=== PATIENT | male | born 1955 | race Hispanic/Latino ===

== ENCOUNTER 2020-07-23 19:21 | Inpatient (IN) | payer OTHER ==
[~2020-07-23] VITALS: Ht 170.2 cm; Wt 128.4 kg
[~2020-07-23 19:21] MED LIST: ALLOPURINOL300 MG PO; AMLODIPINE BESY10 MG PO; COLACE100 MG PO; DOCUSATE SODIU100 MG PO; DOK100 MG PO; FEOSOL325 MG PO; FUROSEMIDE10 MG/1 M1 IV; GLIMEPIRIDE2 MG PO; KLOR-CON 1010 MEQ PO; LISINOPRIL10 MG PO; OMEPRAZOLE20 MG PO; PRAVASTATIN SOD40 MG PO; SENNA LAXATIVE8.6 MG PO; SENNA-S TABLET1 EA PO; TRAMADOL-ACETAMI1 EA PO; TYLENOL WITH C1 EACH PO; ULTRACET TABLE1 EACH PO; ULTRAM 50MG50 MG PO; ULTRAM50 MG PO; ZOLOFT50 MG PO
[2020-07-23 20:10] LABS: BASOPHILS % 0.2 % (0.0-1.0); HEMATOCRIT 51.1 % (38.2-49.6); HEMOGLOBIN 16.1 g/dL (14.0-18.0); LYMPHOCYTES # (AUTO) 0.5 (1.0-3.2); LYMPHOCYTES % 2.3 % (18.0-39.1); MEAN CORPUSCULAR HEMOGLOBIN 27.5 pg (28-32); MEAN CORPUSCULAR HGB CONC 31.5 g/dL (31-35); MEAN CORPUSCULAR VOLUME 87.4 fL (81-99); MONOCYTES # (AUTO) 1.1 (0.2-0.8); MONOCYTES % 4.8 % (4.4-11.3); NEUTROPHILS # (AUTO) 20.2 (2.1-6.9); NEUTROPHILS % 92.1 % (38.7-80.0); PLATELET COUNT 139 x10e3/uL (140-360); RED BLOOD COUNT 5.85 x10e6/uL (4.3-5.7); RED CELL DISTRIBUTION WIDTH 16.8 % (11.7-14.4)
[2020-07-23] MEDS ORDERED: VANCOMYCIN 1GM/NS 250 ML 250 ML IV STA (20:26)
[2020-07-23] MEDS ORDERED: CEFEPIME 1 GM in SODIUM CHLORIDE 0.9% 50ML 50 ML IV ONE (20:30)
[2020-07-23 20:31] LABS: ALBUMIN 2.7 g/dL (3.5-5.0); ALBUMIN/GLOBULIN RATIO 0.7 (0.8-2.0); ANION GAP 17.6 mmol/L (8-16); CALCIUM 8.1 mg/dL (8.4-10.2); CREATININE, SERUM 2.11 mg/dL (0.72-1.25); POTASSIUM 3.6 mmol/L (3.5-5.1)
[2020-07-23] MEDS ORDERED: SODIUM CHLORIDE 0.9% 1000ML 1,000 ML IV STA ×2 (20:36)
[2020-07-23] MEDS ORDERED: SODIUM CHLORIDE 0.9% 1000ML 1,000 ML ONE (20:52)
[2020-07-23] MEDS ORDERED: FUROSEMIDE INJ 10 MG/ML 4 ML VIAL ONE (23:03)
[2020-07-23] MEDS ORDERED: FUROSEMIDE INJ 10 MG/ML 4 ML VIAL IV ONE (23:15)
[2020-07-23 23:34] LABS: CLARITY,URINE CLOUDY (CLEAR); COLOR,URINE YELLOW (YELLOW); KETONES,URINE NEGATIVE (NEGATIVE); LEUKOCYTE ESTERASE ,URINE 2+ (NEGATIVE); NITRITE,URINE NEGATIVE (NEGATIVE); PROTEIN,URINE DIPSTICK 2+ (NEGATIVE); URINE UROBILINOGEN 0.2 mg/dL (0.2 - 1)
[2020-07-23 23:35] LABS: BACTERIA,URINE MANY /HPF; EPITHELIAL CELLS,URINE FEW /LPF; RBC,URINE >50 /HPF (0-5); WBC,URINE (MAN) >50 /HPF (0-5)
[2020-07-23 23:43] LABS: CREATINE KINASE MB 15.4 ng/mL (0-5.0)
[2020-07-23 23:46] LABS: ABG PCO2 38 mmHg (35-45); ABG PH 7.38 (7.35-7.45)
[2020-07-23 23:47] LABS: ABG HCO3 23 mmol/L (22-26); ABG PO2 172 mmHg (80-105); ABG TCO2 24
[2020-07-24] VITALS (25 sets, daily range): BP systolic 83–164; BP diastolic 42–95
[2020-07-24] MEDS ORDERED: MORPHINE SULFATE INJ 2 MG/ML SYR IV STA (00:29)
[2020-07-24] MEDS ORDERED: DEXTROSE 50% SYRINGE 50 ML IV PRN (09:00)
[2020-07-24] MEDS ORDERED: DOCUSATE SODIUM 100 MG CAP PO SCH (09:30)
[2020-07-24] MEDS: DOCUSATE SODIUM 100 MG CAP PO SCH ×2 (09:57→17:06)
[2020-07-24] MEDS: ALLOPURINOL 300 MG TAB PO SCH (09:58)
[2020-07-24] MEDS: PANTOPRAZOLE SOD 40 MG TABEC PO SCH (10:12)
[2020-07-24 10:52] LABS: INR 1.29; PROTHROMBIN TIME 16.8 seconds (11.9-14.5)
[2020-07-24] MEDS: HEPARIN SOD (PORCINE) 5,000 UNIT/ML VIAL SC SCH ×2 (11:25→22:00)
[2020-07-24] MEDS: ACETAMINOPHEN 325 MG TAB PO PRN (11:31)
[2020-07-24 12:04] LABS: ABG HCO3 24 mmol/L (22-26); ABG PCO2 41 mmHg (35-45); ABG PH 7.37 (7.35-7.45); ABG PO2 56 mmHg (80-105); ABG TCO2 25
[2020-07-24] MEDS: INSULIN LISPRO 100 UNIT/1 ML 3ML VIAL SQ SCH ×3 (12:20→22:01)
[2020-07-24] MEDS: ALBUTEROL/IPRATROPIUM 3 ML NEB NEB SCH ×2 (13:25→19:30)
[2020-07-24] MEDS: DEXTROSE 5%/0.9% SOD CHL 1,000 ML IV SCH (13:44)
[2020-07-24] MEDS: CEFEPIME 1 GM in SODIUM CHLORIDE 0.9% 50ML 50 ML IV SCH ×2 (13:44→22:12)
[2020-07-24] MEDS: MEROPENEM 1 GM in SODIUM CHLORIDE 0.9% 100 ML IV SCH (13:44)
[2020-07-24] MEDS ORDERED: VANCOMYCIN IV SCH (15:00)
[2020-07-24] MEDS: AMMONIUM LACTATE 12% LOTION 225GM BTL TOP SCH (17:06)
[2020-07-24] MEDS: ACETAMINOPHEN/CODEINE 300MG - 30MG TAB PO PRN (18:29)
[2020-07-24] MEDS ORDERED: SODIUM CHLORIDE 0.9% 1000ML 1,000 ML IV ONE (19:15)
[2020-07-24] MEDS ORDERED: SODIUM CHLORIDE 0.9% 1000ML 1,000 ML ONE (19:35)
[2020-07-24] MEDS: FUROSEMIDE INJ 10 MG/ML 4 ML VIAL IV SCH ×2 (21:00→23:27)
[2020-07-24 21:11] LABS: ANION GAP 12.5 mmol/L (8-16); CALCIUM 7.8 mg/dL (8.4-10.2); CREATININE, SERUM 2.51 mg/dL (0.72-1.25); POTASSIUM 3.5 mmol/L (3.5-5.1)
[2020-07-24] MEDS ORDERED: NOREPINEPHRINE 8 MG/D5W 250 ML 250 ML ONE (21:21)
[2020-07-24] MEDS: NOREPINEPHRINE 8 MG/D5W 250 ML 250 ML IV SCH (21:35)
[2020-07-24] MEDS: PRAVASTATIN 20 MG TAB PO SCH (22:05)
[2020-07-24] MEDS ORDERED: SODIUM CHLORIDE 0.9% 1000ML 500 ML IV ONE (22:30)
[2020-07-25] VITALS (25 sets, daily range): BP systolic 85–133; BP diastolic 47–87
[2020-07-25] MEDS: MEROPENEM 1 GM in SODIUM CHLORIDE 0.9% 100 ML IV SCH ×3 (00:04→14:31)
[2020-07-25] MEDS: ALBUTEROL/IPRATROPIUM 3 ML NEB NEB SCH ×4 (01:02→19:25)
[2020-07-25] MEDS: CEFEPIME 1 GM in SODIUM CHLORIDE 0.9% 50ML 50 ML IV SCH (05:35)
[2020-07-25 06:13] LABS: BASOPHILS % 0.2 % (0.0-1.0); HEMATOCRIT 48.8 % (38.2-49.6); HEMOGLOBIN 15.2 g/dL (14.0-18.0); LYMPHOCYTES # (AUTO) 0.4 (1.0-3.2); LYMPHOCYTES % 2.5 % (18.0-39.1); MEAN CORPUSCULAR HEMOGLOBIN 27.9 pg (28-32); MEAN CORPUSCULAR HGB CONC 31.1 g/dL (31-35); MEAN CORPUSCULAR VOLUME 89.5 fL (81-99); MONOCYTES # (AUTO) 0.7 (0.2-0.8); MONOCYTES % 4.9 % (4.4-11.3); NEUTROPHILS % 91.6 % (38.7-80.0); PLATELET COUNT 122 x10e3/uL (140-360); RED BLOOD COUNT 5.45 x10e6/uL (4.3-5.7); RED CELL DISTRIBUTION WIDTH 17.2 % (11.7-14.4)
[2020-07-25 06:53] LABS: ALBUMIN 2.2 g/dL (3.5-5.0); ALBUMIN/GLOBULIN RATIO 0.5 (0.8-2.0); ANION GAP 13.4 mmol/L (8-16); CREATININE, SERUM 2.58 mg/dL (0.72-1.25); POTASSIUM 3.4 mmol/L (3.5-5.1)
[2020-07-25 08:12] LABS: LYMPHOCYTES % (MANUAL) 2 % (19-48); MONOCYTES % (MANUAL) 2 % (3.4-9.0); NEUTROPHILS % (MANUAL) 93 % (40-74); PLATELET ESTIMATE SLIGHTLY DECREASED; PLATELET MORPHOLOGY COMMENT NORMAL; RBC MORPHOLOGY COMMENT NORMAL
[2020-07-25] MEDS: DEXTROSE 5%/0.9% SOD CHL 1,000 ML IV SCH (08:23)
[2020-07-25] MEDS: ALLOPURINOL 300 MG TAB PO SCH (10:16)
[2020-07-25] MEDS: PANTOPRAZOLE SOD 40 MG TABEC PO SCH (10:16)
[2020-07-25] MEDS: DOCUSATE SODIUM 100 MG CAP PO SCH ×2 (10:16→20:02)
[2020-07-25] MEDS: HEPARIN SOD (PORCINE) 5,000 UNIT/ML VIAL SC SCH ×2 (10:22→20:30)
[2020-07-25] MEDS: INSULIN LISPRO 100 UNIT/1 ML 3ML VIAL SQ SCH ×4 (10:31→20:31)
[2020-07-25] MEDS: ACETAMINOPHEN 325 MG TAB PO PRN (10:34)
[2020-07-25] MEDS: POTASSIUM CHLORIDE 20 MEQ TAB CR PO PRN (10:34)
[2020-07-25] MEDS ORDERED: SODIUM CHLORIDE 0.9% 1000ML 1,000 ML IV SCH ×2 (10:45→12:00)
[2020-07-25 11:06] LABS: ABG PH 7.39 (7.35-7.45)
[2020-07-25 11:07] LABS: ABG HCO3 23 mmol/L (22-26); ABG PCO2 39 mmHg (35-45); ABG PO2 53 mmHg (80-105); ABG TCO2 24
[2020-07-25] MEDS ORDERED: FUROSEMIDE INJ 10 MG/ML 4 ML VIAL IV ONE (11:30)
[2020-07-25] MEDS: AMMONIUM LACTATE 12% LOTION 225GM BTL TOP SCH ×2 (14:28→17:22)
[2020-07-25] MEDS ORDERED: MEROPENEM 1 GM VIAL ONE (14:39)
[2020-07-25] MEDS ORDERED: FUROSEMIDE INJ 10 MG/ML 4 ML VIAL ONE (14:40)
[2020-07-25] MEDS: ACETAMINOPHEN/CODEINE 300MG - 30MG TAB PO PRN (17:22)
[2020-07-25] MEDS: SODIUM CHLORIDE 0.9% 1000ML 1,000 ML IV SCH (20:23)
[2020-07-25] MEDS: PRAVASTATIN 20 MG TAB PO SCH (20:30)
[2020-07-25] MEDS: NOREPINEPHRINE 8 MG/D5W 250 ML 250 ML IV SCH (20:43)
[2020-07-26] VITALS (20 sets, daily range): BP systolic 106–140; BP diastolic 54–112
[2020-07-26] MEDS ORDERED: MEROPENEM 1 GM VIAL ONE (00:08)
[2020-07-26] MEDS: MEROPENEM 1 GM in SODIUM CHLORIDE 0.9% 100 ML IV SCH (00:20)
[2020-07-26] MEDS: ALBUTEROL/IPRATROPIUM 3 ML NEB NEB SCH ×4 (03:25→19:55)
[2020-07-26 04:46] LABS: BASOPHILS % 0.2 % (0.0-1.0); HEMATOCRIT 44.1 % (38.2-49.6); HEMOGLOBIN 13.8 g/dL (14.0-18.0); LYMPHOCYTES # (AUTO) 0.3 (1.0-3.2); LYMPHOCYTES % 2.7 % (18.0-39.1); MEAN CORPUSCULAR HEMOGLOBIN 27.9 pg (28-32); MEAN CORPUSCULAR HGB CONC 31.3 g/dL (31-35); MEAN CORPUSCULAR VOLUME 89.1 fL (81-99); MONOCYTES # (AUTO) 0.8 (0.2-0.8); MONOCYTES % 7.2 % (4.4-11.3); NEUTROPHILS # (AUTO) 10.4 (2.1-6.9); PLATELET COUNT 103 x10e3/uL (140-360); RED BLOOD COUNT 4.95 x10e6/uL (4.3-5.7); RED CELL DISTRIBUTION WIDTH 16.9 % (11.7-14.4)
[2020-07-26 04:57] LABS: ALBUMIN 1.9 g/dL (3.5-5.0); ALBUMIN/GLOBULIN RATIO 0.5 (0.8-2.0); ANION GAP 9.2 mmol/L (8-16); CALCIUM 7.4 mg/dL (8.4-10.2); CREATININE, SERUM 2.32 mg/dL (0.72-1.25); POTASSIUM 3.2 mmol/L (3.5-5.1)
[2020-07-26] MEDS: POTASSIUM CHLORIDE 20 MEQ TAB CR PO PRN (06:36)
[2020-07-26] MEDS: SODIUM CHLORIDE 0.9% 1000ML 1,000 ML IV SCH ×2 (06:36→13:54)
[2020-07-26] MEDS: INSULIN LISPRO 100 UNIT/1 ML 3ML VIAL SQ SCH ×4 (07:30→21:08)
[2020-07-26] MEDS: PANTOPRAZOLE SOD 40 MG TABEC PO SCH (07:31)
[2020-07-26] MEDS: ALLOPURINOL 300 MG TAB PO SCH (08:12)
[2020-07-26] MEDS: DOCUSATE SODIUM 100 MG CAP PO SCH ×2 (08:12→17:03)
[2020-07-26] MEDS: HEPARIN SOD (PORCINE) 5,000 UNIT/ML VIAL SC SCH (08:18)
[2020-07-26 08:34] LABS: BAND NEUTROPHILS % (MANUAL) 2 %; LYMPHOCYTES % (MANUAL) 3 % (19-48); MONOCYTES % (MANUAL) 4 % (3.4-9.0); NEUTROPHILS % (MANUAL) 91 % (40-74)
[2020-07-26 08:35] LABS: PLATELET ESTIMATE SLIGHTLY DECREASED; PLATELET MORPHOLOGY COMMENT NORMAL; RBC MORPHOLOGY COMMENT NORMAL
[2020-07-26] MEDS: AMMONIUM LACTATE 12% LOTION 225GM BTL TOP SCH ×2 (08:42→18:25)
[2020-07-26] MEDS: PSYLLIUM 6GM PACKET PO SCH (09:15)
[2020-07-26] MEDS ORDERED: MAGNESIUM HYDROXIDE 30 ML UDC PO PRN (10:00)
[2020-07-26] MEDS: Cefazolin 1 GM in SODIUM CHLORIDE 0.9% 50ML 50 ML IV SCH ×2 (13:54→21:07)
[2020-07-26] MEDS ORDERED: CEFAZOLIN SOD 1 GM/NS 50ML 50 ML IV SCH (14:00)
[2020-07-26] MEDS: ACETAMINOPHEN/CODEINE 300MG - 30MG TAB PO PRN (14:25)
[2020-07-26] MEDS: PRAVASTATIN 20 MG TAB PO SCH (21:07)
[2020-07-26] MEDS ORDERED: SODIUM CHLORIDE 0.9% 250ML 250 ML ONE (21:26)
[2020-07-27] MEDS: ALBUTEROL/IPRATROPIUM 3 ML NEB NEB SCH ×4 (00:40→19:52)
[2020-07-27 05:03] VITALS: BP 118/57
[2020-07-27 05:10] LABS: BASOPHILS % 0.2 % (0.0-1.0); EOSINOPHILS % 0.2 % (0.0-6.0); HEMATOCRIT 45.7 % (38.2-49.6); LYMPHOCYTES # (AUTO) 0.4 (1.0-3.2); LYMPHOCYTES % 3.2 % (18.0-39.1); MEAN CORPUSCULAR HEMOGLOBIN 27.6 pg (28-32); MEAN CORPUSCULAR HGB CONC 30.6 g/dL (31-35); MONOCYTES % 7.9 % (4.4-11.3); NEUTROPHILS # (AUTO) 11.4 (2.1-6.9); NEUTROPHILS % 87.9 % (38.7-80.0); PLATELET COUNT 130 x10e3/uL (140-360); RED BLOOD COUNT 5.08 x10e6/uL (4.3-5.7)
[2020-07-27 05:38] LABS: ANION GAP 10.5 mmol/L (8-16); CALCIUM 8.3 mg/dL (8.4-10.2); CREATININE, SERUM 2.09 mg/dL (0.72-1.25); POTASSIUM 3.5 mmol/L (3.5-5.1)
[2020-07-27] MEDS: Cefazolin 1 GM in SODIUM CHLORIDE 0.9% 50ML 50 ML IV SCH ×3 (05:57→22:50)
[2020-07-27] MEDS: INSULIN LISPRO 100 UNIT/1 ML 3ML VIAL SQ SCH ×4 (07:30→20:51)
[2020-07-27] MEDS: PANTOPRAZOLE SOD 40 MG TABEC PO SCH (07:30)
[2020-07-27 07:59] VITALS: BP 107/56
[2020-07-27] MEDS: DOCUSATE SODIUM 100 MG CAP PO SCH ×2 (09:31→16:50)
[2020-07-27] MEDS: ALLOPURINOL 300 MG TAB PO SCH (09:31)
[2020-07-27] MEDS: PSYLLIUM 6GM PACKET PO SCH (09:32)
[2020-07-27] MEDS: AMMONIUM LACTATE 12% LOTION 225GM BTL TOP SCH ×2 (09:33→16:50)
[2020-07-27] MEDS ORDERED: POTASSIUM CHLORIDE 20MEQ/100ML 200 ML IV ONE (11:30)
[2020-07-27] MEDS ORDERED: CITRATE OF MAGNESIA 300ML BOTTLE PO ONE (11:45)
[2020-07-27 20:00] VITALS: BP 113/61
[2020-07-27 20:23] VITALS: BP 113/61
[2020-07-27] MEDS: PRAVASTATIN 20 MG TAB PO SCH (20:50)
[2020-07-28] VITALS (8 sets, daily range): BP systolic 106–124; BP diastolic 45–64
[2020-07-28] MEDS: ALBUTEROL/IPRATROPIUM 3 ML NEB NEB SCH ×4 (01:08→19:42)
[2020-07-28] MEDS: Cefazolin 1 GM in SODIUM CHLORIDE 0.9% 50ML 50 ML IV SCH ×3 (05:05→22:48)
[2020-07-28 05:58] LABS: BASOPHILS % 0.2 % (0.0-1.0); EOSINOPHILS # (AUTO) 0.1 (0.0-0.4); EOSINOPHILS % 0.4 % (0.0-6.0); HEMOGLOBIN 13.7 g/dL (14.0-18.0); LYMPHOCYTES # (AUTO) 0.5 (1.0-3.2); LYMPHOCYTES % 4.3 % (18.0-39.1); MEAN CORPUSCULAR HGB CONC 31.1 g/dL (31-35); MEAN CORPUSCULAR VOLUME 89.8 fL (81-99); MONOCYTES # (AUTO) 0.6 (0.2-0.8); NEUTROPHILS # (AUTO) 10.6 (2.1-6.9); PLATELET COUNT 147 x10e3/uL (140-360)
[2020-07-28 06:32] LABS: ANION GAP 12.6 mmol/L (8-16); CALCIUM 7.9 mg/dL (8.4-10.2); CREATININE, SERUM 2.06 mg/dL (0.72-1.25); POTASSIUM 3.6 mmol/L (3.5-5.1)
[2020-07-28] MEDS: INSULIN LISPRO 100 UNIT/1 ML 3ML VIAL SQ SCH ×4 (07:30→20:57)
[2020-07-28] MEDS: PANTOPRAZOLE SOD 40 MG TABEC PO SCH (07:30)
[2020-07-28] MEDS: PSYLLIUM 6GM PACKET PO SCH (08:33)
[2020-07-28] MEDS: DOCUSATE SODIUM 100 MG CAP PO SCH ×2 (08:33→17:00)
[2020-07-28] MEDS: AMMONIUM LACTATE 12% LOTION 225GM BTL TOP SCH ×2 (09:00→17:10)
[2020-07-28] MEDS: ALLOPURINOL 300 MG TAB PO SCH (09:24)
[2020-07-28] MEDS ORDERED: PROPOFOL IV EMULSION 10 MG/ML 20 ML VIAL ONE (12:40)
[2020-07-28] MEDS ORDERED: SEVOFLURANE INHAL SOLN 250 ML PEN BTL ONE (12:40)
[2020-07-28] MEDS ORDERED: ONDANSETRON HCL INJ 2MG/ML 2ML 2 MG/ML VIAL ONE (12:40)
[2020-07-28] MEDS ORDERED: LIDOCAINE HCL 2% LOCAL INJ 5 ML SDV VIAL INJ ONE (12:40)
[2020-07-28] MEDS ORDERED: POVIDONE IODINE 0.05% 0.05 % ML PO ONE (12:40)
[2020-07-28] MEDS ORDERED: B&O 60MG R/S 60 MG SUPP PR ONE (13:41)
[2020-07-28] MEDS ORDERED: IOPAMIDOL 300MG/ML 50ML INFUS..BTL IV ONE (13:41)
[2020-07-28] MEDS: ACETAMINOPHEN/CODEINE 300MG - 30MG TAB PO PRN (16:07)
[2020-07-28] MEDS: PRAVASTATIN 20 MG TAB PO SCH (21:03)
[2020-07-28] MEDS: HYDROCODONE/APAP 5MG-325MG TAB PO PRN (21:14)
[2020-07-29] VITALS (8 sets, daily range): BP systolic 104–123; BP diastolic 50–69
[2020-07-29] MEDS: ALBUTEROL/IPRATROPIUM 3 ML NEB NEB SCH ×4 (01:40→22:00)
[2020-07-29] MEDS: Cefazolin 1 GM in SODIUM CHLORIDE 0.9% 50ML 50 ML IV SCH ×3 (06:27→21:13)
[2020-07-29] MEDS: HYDROCODONE/APAP 5MG-325MG TAB PO PRN ×2 (06:50→14:32)
[2020-07-29] MEDS: INSULIN LISPRO 100 UNIT/1 ML 3ML VIAL SQ SCH ×4 (07:30→21:00)
[2020-07-29] MEDS: DOCUSATE SODIUM 100 MG CAP PO SCH ×2 (09:49→16:45)
[2020-07-29] MEDS: AMMONIUM LACTATE 12% LOTION 225GM BTL TOP SCH ×2 (09:49→16:45)
[2020-07-29] MEDS: ALLOPURINOL 300 MG TAB PO SCH (09:49)
[2020-07-29] MEDS: PANTOPRAZOLE SOD 40 MG TABEC PO SCH (09:49)
[2020-07-29] MEDS: PSYLLIUM 6GM PACKET PO SCH (09:49)
[2020-07-29] MEDS: ACETAMINOPHEN/CODEINE 300MG - 30MG TAB PO PRN (10:38)
[2020-07-29] MEDS: PRAVASTATIN 20 MG TAB PO SCH (21:00)
[2020-07-30 00:13] VITALS: BP 108/54
[2020-07-30] MEDS: ALBUTEROL/IPRATROPIUM 3 ML NEB NEB SCH ×4 (04:00→19:32)
[2020-07-30] MEDS: Cefazolin 1 GM in SODIUM CHLORIDE 0.9% 50ML 50 ML IV SCH ×3 (05:21→21:38)
[2020-07-30] MEDS: PANTOPRAZOLE SOD 40 MG TABEC PO SCH (08:58)
[2020-07-30] MEDS: ALLOPURINOL 300 MG TAB PO SCH (08:58)
[2020-07-30] MEDS: DOCUSATE SODIUM 100 MG CAP PO SCH ×2 (08:58→17:56)
[2020-07-30] MEDS: ACETAMINOPHEN/CODEINE 300MG - 30MG TAB PO PRN ×3 (08:58→20:00)
[2020-07-30] MEDS: PSYLLIUM 6GM PACKET PO SCH (08:58)
[2020-07-30] MEDS: AMMONIUM LACTATE 12% LOTION 225GM BTL TOP SCH ×2 (08:58→17:56)
[2020-07-30] MEDS: INSULIN LISPRO 100 UNIT/1 ML 3ML VIAL SQ SCH ×4 (09:22→20:01)
[2020-07-30] MEDS: SERTRALINE HCL 50 MG TAB PO SCH (12:01)
[2020-07-30] MEDS ORDERED: FENTANYL CITRATE/PF 100MCG/2 ML INJ ONE (15:33)
[2020-07-30] MEDS: PRAVASTATIN 20 MG TAB PO SCH (20:03)
[2020-07-31] MEDS: ALBUTEROL/IPRATROPIUM 3 ML NEB NEB SCH ×3 (00:48→13:30)
[2020-07-31] MEDS: ACETAMINOPHEN/CODEINE 300MG - 30MG TAB PO PRN (03:33)
[2020-07-31] MEDS: Cefazolin 1 GM in SODIUM CHLORIDE 0.9% 50ML 50 ML IV SCH (06:00)
[2020-07-31] MEDS: INSULIN LISPRO 100 UNIT/1 ML 3ML VIAL SQ SCH (07:30)
[2020-07-31] MEDS: AMMONIUM LACTATE 12% LOTION 225GM BTL TOP SCH (09:00)
[2020-07-31] MEDS: PRAVASTATIN 20 MG TAB PO SCH (21:00)
[2020-08-01] MEDS: ALBUTEROL/IPRATROPIUM 3 ML NEB NEB SCH ×3 (07:02→19:40)
[2020-08-01] MEDS: PANTOPRAZOLE SOD 40 MG TABEC PO SCH (07:30)
[2020-08-01] MEDS: INSULIN LISPRO 100 UNIT/1 ML 3ML VIAL SQ SCH ×4 (07:30→21:21)
[2020-08-01 08:00] VITALS: BP 146/71
[2020-08-01] MEDS: ALLOPURINOL 300 MG TAB PO SCH (09:00)
[2020-08-01] MEDS: SERTRALINE HCL 50 MG TAB PO SCH (09:00)
[2020-08-01] MEDS: DOCUSATE SODIUM 100 MG CAP PO SCH ×2 (09:00→16:41)
[2020-08-01] MEDS: AMMONIUM LACTATE 12% LOTION 225GM BTL TOP SCH ×2 (09:00→16:41)
[2020-08-01] MEDS: PSYLLIUM 6GM PACKET PO SCH (09:00)
[2020-08-01] MEDS ORDERED: FUROSEMIDE INJ 10 MG/ML 4 ML VIAL IV ONE (11:00)
[2020-08-01 12:00] VITALS: BP 134/76
[2020-08-01] MEDS: FUROSEMIDE INJ 10 MG/ML 4 ML VIAL IV SCH ×2 (12:00→17:39)
[2020-08-01] MEDS: Cefazolin 1 GM in SODIUM CHLORIDE 0.9% 50ML 50 ML IV SCH ×2 (14:00→21:17)
[2020-08-01 16:01] VITALS: BP 122/78
[2020-08-01] MEDS: HYDROCODONE/APAP 5MG-325MG TAB PO PRN (16:02)
[2020-08-01 20:00] VITALS: BP 124/77
[2020-08-01] MEDS: PRAVASTATIN 20 MG TAB PO SCH (20:22)
[2020-08-01 21:29] VITALS: BP 124/77
[2020-08-01 23:47] VITALS: BP 124/70
[2020-08-02] VITALS (7 sets, daily range): BP systolic 93–125; BP diastolic 39–76
[2020-08-02] MEDS: ALBUTEROL/IPRATROPIUM 3 ML NEB NEB SCH ×4 (00:55→20:00)
[2020-08-02] MEDS: Cefazolin 1 GM in SODIUM CHLORIDE 0.9% 50ML 50 ML IV SCH ×2 (05:56→14:30)
[2020-08-02] MEDS: FUROSEMIDE INJ 10 MG/ML 4 ML VIAL IV SCH ×5 (05:56→23:43)
[2020-08-02 06:13] LABS: BASOPHILS % 0.4 % (0.0-1.0); EOSINOPHILS # (AUTO) 0.1 (0.0-0.4); EOSINOPHILS % 0.9 % (0.0-6.0); HEMATOCRIT 49.6 % (38.2-49.6); HEMOGLOBIN 15.4 g/dL (14.0-18.0); LYMPHOCYTES # (AUTO) 0.7 (1.0-3.2); LYMPHOCYTES % 6.8 % (18.0-39.1); MEAN CORPUSCULAR HEMOGLOBIN 27.6 pg (28-32); MEAN CORPUSCULAR VOLUME 88.9 fL (81-99); MONOCYTES # (AUTO) 0.5 (0.2-0.8); MONOCYTES % 4.8 % (4.4-11.3); NEUTROPHILS # (AUTO) 8.3 (2.1-6.9); NEUTROPHILS % 82.8 % (38.7-80.0); PLATELET COUNT 230 x10e3/uL (140-360); RED BLOOD COUNT 5.58 x10e6/uL (4.3-5.7); RED CELL DISTRIBUTION WIDTH 16.8 % (11.7-14.4)
[2020-08-02 06:42] LABS: ALBUMIN 2.2 g/dL (3.5-5.0); ALBUMIN/GLOBULIN RATIO 0.5 (0.8-2.0); ANION GAP 11.4 mmol/L (8-16); CALCIUM 8.2 mg/dL (8.4-10.2); CREATININE, SERUM 1.44 mg/dL (0.72-1.25); POTASSIUM 3.4 mmol/L (3.5-5.1)
[2020-08-02] MEDS: INSULIN LISPRO 100 UNIT/1 ML 3ML VIAL SQ SCH ×2 (07:30→13:15)
[2020-08-02] MEDS: DOCUSATE SODIUM 100 MG CAP PO SCH ×2 (09:01→17:00)
[2020-08-02] MEDS: ALLOPURINOL 300 MG TAB PO SCH (09:01)
[2020-08-02] MEDS: PSYLLIUM 6GM PACKET PO SCH (09:01)
[2020-08-02] MEDS: SERTRALINE HCL 50 MG TAB PO SCH (09:01)
[2020-08-02] MEDS: POTASSIUM CHLORIDE 20 MEQ TAB CR PO PRN (09:02)
[2020-08-02] MEDS: PANTOPRAZOLE SOD 40 MG TABEC PO SCH (09:02)
[2020-08-02] MEDS: AMMONIUM LACTATE 12% LOTION 225GM BTL TOP SCH ×2 (09:06→17:00)
[2020-08-02] MEDS: HYDROCODONE/APAP 5MG-325MG TAB PO PRN ×2 (10:05→17:53)
[2020-08-02] MEDS ORDERED: FUROSEMIDE INJ 10 MG/ML 4 ML VIAL IV ONE (11:30)
[2020-08-02] MEDS: SUCRALFATE 1 GM TAB PO SCH ×3 (11:41→21:00)
[2020-08-02] MEDS ORDERED: POTASSIUM CHLORIDE 20MEQ/100ML 200 ML IV ONE (12:00)
[2020-08-02] MEDS ORDERED: ENOXAPARIN SOD INJ 40 MG/0.4 ML SYR SC ONE (19:15)
[2020-08-02] MEDS ORDERED: TAMSULOSIN HCL 0.4 MG CAP PO SCH (21:00)
[2020-08-02] MEDS: PRAVASTATIN 20 MG TAB PO SCH (21:00)
[2020-08-02] MEDS ORDERED: FUROSEMIDE40 MG PO (21:01)
[2020-08-02] MEDS ORDERED: KLOR-CON M2020 MEQ PO (21:01)
[2020-08-03] VITALS (7 sets, daily range): BP systolic 99–110; BP diastolic 44–73
[2020-08-03] MEDS: ALBUTEROL/IPRATROPIUM 3 ML NEB NEB SCH ×3 (01:45→13:00)
[2020-08-03] MEDS: FUROSEMIDE INJ 10 MG/ML 4 ML VIAL IV SCH (05:21)
[2020-08-03 06:19] LABS: BASOPHILS % 0.4 % (0.0-1.0); EOSINOPHILS # (AUTO) 0.1 (0.0-0.4); EOSINOPHILS % 0.8 % (0.0-6.0); HEMATOCRIT 49.3 % (38.2-49.6); HEMOGLOBIN 15.3 g/dL (14.0-18.0); LYMPHOCYTES # (AUTO) 0.7 (1.0-3.2); LYMPHOCYTES % 7.5 % (18.0-39.1); MEAN CORPUSCULAR HEMOGLOBIN 27.6 pg (28-32); MONOCYTES # (AUTO) 0.4 (0.2-0.8); MONOCYTES % 4.4 % (4.4-11.3); NEUTROPHILS % 83.4 % (38.7-80.0); PLATELET COUNT 230 x10e3/uL (140-360); RED BLOOD COUNT 5.54 x10e6/uL (4.3-5.7); RED CELL DISTRIBUTION WIDTH 17.2 % (11.7-14.4)
[2020-08-03 06:40] LABS: ALBUMIN 2.4 g/dL (3.5-5.0); ALBUMIN/GLOBULIN RATIO 0.5 (0.8-2.0); ANION GAP 11.4 mmol/L (8-16); CALCIUM 8.4 mg/dL (8.4-10.2); CREATININE, SERUM 1.42 mg/dL (0.72-1.25); POTASSIUM 3.4 mmol/L (3.5-5.1)
[2020-08-03] MEDS: INSULIN LISPRO 100 UNIT/1 ML 3ML VIAL SQ SCH ×2 (07:30→16:30)
[2020-08-03] MEDS: PANTOPRAZOLE SOD 40 MG TABEC PO SCH (07:45)
[2020-08-03] MEDS: SUCRALFATE 1 GM TAB PO SCH ×3 (07:45→18:50)
[2020-08-03] MEDS: Cefazolin 1 GM in SODIUM CHLORIDE 0.9% 50ML 50 ML IV SCH (07:45)
[2020-08-03] MEDS: SERTRALINE HCL 50 MG TAB PO SCH ×2 (09:00→10:00)
[2020-08-03] MEDS: ALLOPURINOL 300 MG TAB PO SCH (10:00)
[2020-08-03] MEDS: DOCUSATE SODIUM 100 MG CAP PO SCH ×2 (10:00→18:50)
[2020-08-03] MEDS: PSYLLIUM 6GM PACKET PO SCH (10:00)
[2020-08-03] MEDS: AMMONIUM LACTATE 12% LOTION 225GM BTL TOP SCH ×2 (10:01→18:50)
[2020-08-03] MEDS ORDERED: POTASSIUM CHLORIDE 20MEQ/100ML 200 ML IV ONE (11:30)
[2020-08-03] MEDS ORDERED: ENOXAPARIN SOD INJ 40 MG/0.4 ML SYR SC SCH (17:00)
[2020-08-03] MEDS ORDERED: BUMETANIDE 1 MG TAB PO SCH (17:00)
[2020-08-03] MEDS: HYDROCODONE/APAP 5MG-325MG TAB PO PRN (19:25)
== END 2020-08-03 21:54 | DRG 853 ==
LOC: ER 23:38 → ERHOLD 07-24 00:19 → ICU 07-24 00:56 → MED/SURG3 07-26 15:19
PROVIDERS: ADMIT Internal Medicine; ATTEND Internal Medicine
PROC: 02HV33Z Insertion of Infusion Device into Superior Vena Cava, Percutaneous Approach (ICD-10-PCS; 2020-07-24)
PROC: 3E043XZ Introduction of Vasopressor into Central Vein, Percutaneous Approach (ICD-10-PCS; 2020-07-24)
PROC: 5A09357 Assistance with Respiratory Ventilation, Less than 24 Consecutive Hours, Continuous Positive Airway Pressure (ICD-10-PCS; 2020-07-24)
PROC: BT141ZZ Fluoroscopy of Kidneys, Ureters and Bladder using Low Osmolar Contrast (ICD-10-PCS; 2020-07-28)
PROC: 0TF78ZZ Fragmentation in Left Ureter, Via Natural or Artificial Opening Endoscopic (ICD-10-PCS; 2020-07-28)
PROC: 0T788DZ Dilation of Bilateral Ureters with Intraluminal Device, Via Natural or Artificial Opening Endoscopic (ICD-10-PCS; principal; 2020-07-28 14:00)
DX: A41.9 Sepsis, unspecified organism (principal); R65.21 Severe sepsis with septic shock; N17.0 Acute kidney failure with tubular necrosis; I50.33 Acute on chronic diastolic (congestive) heart failure; J96.01 Acute respiratory failure with hypoxia; N13.6 Pyonephrosis; L03.116 Cellulitis of left lower limb; L03.115 Cellulitis of right lower limb; I13.0 Hypertensive heart and chronic kidney disease with heart failure and stage 1 through stage 4 chronic kidney disease, or unspecified chronic kidney disease; Z68.41 Body mass index [BMI] 40.0-44.9, adult; E66.01 Morbid (severe) obesity due to excess calories; Z20.822 Contact with and (suspected) exposure to COVID-19; Z87.891 Personal history of nicotine dependence; J44.9 Chronic obstructive pulmonary disease, unspecified; Z85.038 Personal history of other malignant neoplasm of large intestine; K57.90 Diverticulosis of intestine, part unspecified, without perforation or abscess without bleeding; N28.1 Cyst of kidney, acquired; N35.919 Unspecified urethral stricture, male, unspecified site; I87.8 Other specified disorders of veins; N18.9 Chronic kidney disease, unspecified; E78.5 Hyperlipidemia, unspecified; E87.6 Hypokalemia; N18.32 Chronic kidney disease, stage 3b; R62.7 Adult failure to thrive; B96.4 Proteus (mirabilis) (morganii) as the cause of diseases classified elsewhere
CPT/HCPCS: 36415; 36569; 36600; 71045; 74018; 74176; 74420; 76770; 78580; 80048; 80053; 81001; 82550; 82553; 82805; 82948; 83605; 83880; 84484; 84550; 85025; 85610; 87040; 87071; 87086; 87186; 87205; 93005; 93306; 93925; 93970; 94060; 94640; 94660; 94667; 96372; 97139; 99251; 99284; A9540; C1758; C2617; J0690; J0692; J1644; J1650; J1940; J2001; J2185; J2405; J3010; J3370; J3480; J7030; J7042; J7050; U0002